=== PATIENT | female | born 1995 | race Asian ===

== ENCOUNTER 2019-03-21 05:15 | Observation (INO) | payer OTHER, SELFPAY ==
[2019-03-21] VITALS (12 sets, daily range): BP systolic 125–179; BP diastolic 35–104; PULSE 65–89; RESP 14–16; TEMP 36.2–37.1; O2SAT 98–100; BMI 26.9; BMI 33.7; BMI 33.8
--- NOTE | 2019-03-21 05:19 | ED.RN ---
CALLED FOR EKG PER RN REQUEST, NO OLD EKGS IN MUSE
--- NOTE | 2019-03-21 05:31 | RAD_ITS ---
STUDY: X-RAY CHEST REASON FOR EXAM: Female, 23 years old. Chest discomfort TECHNIQUE: PA and lateral chest COMPARISON: None. FINDINGS: The lungs are clear and expanded. There is no demonstrated pleural abnormality. Normal size heart. Normal mediastinum and bebeto. Normal visualized pulmonary arteries. Normal visualized aortic arch and descending thoracic aorta. Normal visualized thoracic spine. Normal visualized ribs, clavicles, and shoulders. There is no demonstrated abnormality of the visualized soft tissue structures of the upper abdomen. RAD/Chest PA and Lateral IMPRESSION: Normal x-ray examination of the chest. Electronically Signed: Bernabe Macedo, at 6:29 EDT Tel , Service support ,
--- NOTE | 2019-03-21 05:31 | EKG12_ITS ---
Test Reason : CP Blood Pressure : / mmHG Vent. Rate : 097 BPM Atrial Rate : 097 BPM P-R Int : 168 ms QRS Dur : 094 ms QT Int : 370 ms P-R-T Axes : 064 094 051 degrees QTc Int : 469 ms Normal sinus rhythm T wave abnormality, consider anterior ischemia Prolonged QT Abnormal ECG Confirmed by LAVELLE MCELROY ([id number]), editor farm journal SARAY LOZANO ([id number]) on 03/28/2019 8:17:08 AM Referred By: CHAU Confirmed By:LAVELLE MCELROY
--- NOTE | 2019-03-21 05:31 | ED.DCSUM_ITS ---
History of Present Illness Chief Complaint: Chest Pain Narrative: Patient is a 23-year-old female who presents with chest pain. She was recently diagnosed with hypertension and started on amlodipine. She initially went to the wellness center at the [facility] due to left arm pain and elevated blood pressure. She took her medication and her blood pressure improved. She went back to her dorm and when she rechecked her blood pressure was very high again so she went back to the wellness center. She then developed chest discomfort. She describes this as a central heaviness. It is mild at about 3 out of 10. She complains of mild nausea. No shortness of breath lightheadedness or dizziness. Both of her parents have hypertension but there is not a family history of coronary disease. She denies history of illicit drug use. Past Medical History - Allergies and Home Meds Allergies/Adverse Reactions: Allergies No Known Allergies Allergy (Verified 03/21/19 05:30) Past Medical History: - - Hypertension Smoking Status: Never smoker Review of Systems All systems negative except as indicated General: Denies: Fever Cardiovascular: Reports: Chest pain Respiratory: Denies: Dyspnea Gastrointestinal: Reports: Nausea Physical Exam Vital Signs/Narrative: Vital Signs Temp Pulse Resp BP Pulse Ox 03/21/19 05:17 97.2 F L 89 15 179/104 H 100 General: Well nourished, Well developed Head: Normocephalic Eyes: EOMI ENT: Moist mucous membranes Neck: Supple Cardiovascular: Regular rate, Regular rhythm, - - Easily palpable symmetric radial pulses Respiratory: No distress, CTA bilaterally Abdomen: Soft, Nontender Skin: Normal color Neurological: Alert Psychological: Normal affect Diagnostic/Tx/Re-eval Impressions Chest X-Ray 03/21/19 05:31 IMPRESSION: Normal x-ray examination of the chest. Electronically Signed: Bernabe Remington, at 6:29 EDT Tel , Service support , 03/21/19 05:31 Chest PA and Lateral [RAD] Stat Laboratory Results 03/21/19 03/21/19 03/21/19 05:35 05:35 05:50 WBC 11.1 H RBC 4.47 Hgb 13.1 Hct 40.6 MCV 90.8 MCH 29.3 MCHC 32.3 RDW Std Deviation 42.1 RDW Coeff of Mariana 12.7 Plt Count 247 MPV 10.6 Immature Gran % (Auto) 0.300 Neut % (Auto) 61.9 Lymph % (Auto) 29.6 [place] % (Auto) 6.3 Eos % (Auto) 1.6 Baso % (Auto) 0.3 Absolute Neuts (auto) 6.9 Absolute Lymphs (auto) 3.30 Nucleated RBC % 0 Sodium 142 Potassium 3.8 Chloride 110 H Carbon Dioxide 25.0 Anion Gap 7 BUN 7 Creatinine 0.57 Estim Creat Clear Calc 157.49 Est GFR (MDRD) Af Amer 170 Est GFR (MDRD) Non-Af 141 BUN/Creatinine Ratio 12.2 Glucose 112 H Calcium 8.9 Troponin I < 0.015 Urine Test Urine Opiates Screen NEGATIVE Urine Methadone Screen NEGATIVE Ur Barbiturates Screen NEGATIVE Ur Phencyclidine Scrn NEGATIVE Ur Amphetamines Screen NEGATIVE U Methamphetamin-MDMA NEGATIVE U Benzodiazepines Scrn NEGATIVE Urine Cocaine Screen NEGATIVE U Cannabinoids Screen NEGATIVE Ur Drug Screen Comment 03/21/19 05:50 WBC RBC Hgb Hct MCV MCH MCHC RDW Std Deviation RDW Coeff of Mariana Plt Count MPV Immature Gran % (Auto) Neut % (Auto) Lymph % (Auto) [place] % (Auto) Eos % (Auto) Baso % (Auto) Absolute Neuts (auto) Absolute Lymphs (auto) Nucleated RBC % Sodium Potassium Chloride Carbon Dioxide Anion Gap BUN Creatinine Estim Creat Clear Calc Est GFR (MDRD) Af Amer Est GFR (MDRD) Non-Af BUN/Creatinine Ratio Glucose Calcium Troponin I Urine Test Negative Urine Opiates Screen Urine Methadone Screen Ur Barbiturates Screen Ur Phencyclidine Scrn Ur Amphetamines Screen U Methamphetamin-MDMA U Benzodiazepines Scrn Urine Cocaine Screen U Cannabinoids Screen Ur Drug Screen Comment - Medical Decision Making EKG shows sinus rhythm at a rate of 97 T wave inversions in V3 and V4. Laboratory studies are unremarkable with negative troponin negative negative drug screen. Chest x-ray unremarkable. Patient's diagnosis of hypertension is new she is only been on amlodipine for about 1 week. Given her chest pain with EKG abnormalities I do feel she needs further evaluation. I spoke to the hospitalist who agrees to admit. ED Disposition - Plan for ED Patient: Disposition: Acute Care Hospital [facility] Diagnosis: Hypertensive urgency, Chest pain
[2019-03-21 05:55] LABS: Absolute Neutrophil Count 6.9 X10^3/uL (2.0-7.7); Basophil# 0.03 X10^3/uL; Basophil% 0.3 % (0-1); Eosinophil# 0.18 X10^3/uL; Eosinophils% 1.6 % (0-5); Hematocrit 40.6 % (37-47); Hemoglobin 13.1 g/dL (12.0-15.0); Lymphocyte % 29.6 % (19-41); Mean Corp Hgb Conc 32.3 g/dL (32-36); Mean Corpuscular Hgb 29.3 pg (27.0-32.0); Mean Corpuscular Volume 90.8 fL (81-99); Mean Platelet Vol. 10.6 fl (6.2-12.0); Monocyte% 6.3 % (0-10); NRBC Flagged by Analyzer 0 % (0-5); Neutrophil # 6.89 X10^3/uL (2.7-7.7); Neutrophil % 61.9 % (47-70); Platelet Count 247 K/mm3 (150-450); RBC Distribution Width CV 12.7 % (11.6-14.6); RBC Distribution Width SD 42.1 fl (35.1-43.9); Red Blood Count 4.47 M/mm3 (4.2-5.4); White Blood Count 11.1 K/mm3 (4.4-11.0)
[2019-03-21 06:03] LABS: Internal QC Validated? YES +Cl - CLEAR BKGD; Pregnancy, Urine Negative Negative
[2019-03-21 06:11] LABS: Anion Gap 7 (5-15); BUN 7 mg/dL (7-18); BUN/Creat Ratio 12.2 RATIO (10-20); Calcium,Total 8.9 mg/dL (8.5-10.1); Chloride 110 mmol/L (98-107); Creatinine, Serum 0.57 mg/dL (0.55-1.02); EST Glomerular Filtration Rate 141 mL/min (>60); Est Glom Filt Rate - Afr Amer 170 mL/min (>60); Estimated Creatinine Clearance 157.49 ml/min; Glucose 112 mg/dL (74-106); Potassium 3.8 mmol/L (3.5-5.1); Sodium Level 142 mmol/L (136-145)
[2019-03-21 06:37] LABS: Amphetamine Urine VISTA NEGATIVE (<1000 ng/mL); Barbiturate Urine VISTA NEGATIVE (< 200 ng/mL); Benzodiazepine Urine VISTA NEGATIVE (< 200 ng/mL); Cocaine Urine VISTA NEGATIVE (< 300 ng/mL); Ecstacy Urine VISTA NEGATIVE (< 500 ng/mL); Methadone Urine VISTA NEGATIVE (< 300 ng/mL); PCP Urine VISTA NEGATIVE (< 25 ng/mL); THC Urine VISTA NEGATIVE (< 50 ng/mL); Vista UDS pH Range 6
--- NOTE | 2019-03-21 07:03 | NURSING ---
DR SWEENEY FOR DR LARSON
--- NOTE | 2019-03-21 07:06 | NURSING ---
PCU CP, HYPERTENSIVE URGENCY SEMENTI
--- NOTE | 2019-03-21 07:11 | NURSING ---
DR SWEENEY IN ROOM
--- NOTE | 2019-03-21 07:48 | HP.PCM_ITS ---
Problem List (1) HTN (hypertension) Status: Chronic (2) Abnormal EKG Status: Acute (3) Chest pain Status: Acute Qualifiers: Chest pain type: unspecified Qualified Code(s): R07.9 - Chest pain, unspecified (4) Hypertensive urgency Status: Acute History of Present Illness Date of Admission: 03/21/19 Chief Complaint: uncontrolled BP with NARANJO and chest pain The patient is a 23 year old F with a past medical history of recently diagnosed hypertension at the scene on amlodipine 5 mg daily) Who is a senior at [employer] who was seen at the [facility] at the [facility] on 2 occasions on 03/20/19. She was recently started on Amlodipine by her PCP in [place] for increased BP. There is a FH of HTN in both her parents. She returned to college 1 week ago. She has her own BP monitor and has been taking her BP at different times during the day. It tends to run high. Yesterday she had a NARANJO and her BP was high so she took the Amlodipine and then went to the Wellness Center. The initial BP was high but it came down after the Amlodipine kicked in and she went back home. She continued to take her BP and it was high and then she developed chest tightness and aching in her left arm. No SOB, diaphoresis, nausea, palpitations. It was not related to exertion. She once again went to the Wellness Center and then elected to keep her there for a few hours.....the chest tightness persisted and she was sent to the ED. She admits to taking some cold medication once or twice in the past week. She denies any illicit drug use or weight loss drugs. At presentation to the emergency department the temperature was 97.2 with a pulse rate of 89, blood pressure of 179/104, respiratory rate of 15 and she was 100% saturated on room air. CBC was remarkable for a mildly increased white blood cell count at 11.1 with a normal differential. BMP was unremarkable. Random glucose was mildly increased at 112. She denies any family history of diabetes mellitus. Troponin was less than 0.015. Urine drug screen was negative. test was negative. Ch est x-ray was normal. EKG showed an incomplete right bundle branch block with nonspecific T wave changes in the anterior precordial leads. There was no ST segment elevation. She is quite anxious. she is worried about a bruise on the RUE that has been present for a week and likely happened when she was moving in. She was going to go to the Wellness center to have this checked out. She is also worried about a scratchy throat and was going to go to the [facility] Center to have that checked out. She has seasonal allergies and always has rhinitis at this time of the year. She has never been treated for anxiety or depression but, admits to being stressed about going into her senior year. She is sleeping well at night but, does not feel rested when she gets up in morning. She snores and she has a large tongue. 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 Denies: Ear Pain, Sinus Congestion, Sinus Drainage Cardiovascular: Reports: Chest Pain, Chest Pressure. Denies: Edema, Light Headedness, Orthopnea, Palpitations, Paroxysmal Noc. Dyspnea, Syncope Respiratory: Denies: Cough, Hemoptysis, Pleuritic Pain, Shortness of Breath, Shortness of breath at rest, Sputum production Gastrointestinal: Denies: Abdominal Pain, Constipation, Diarrhea, Nausea, Vomiting Genitourinary: Denies: Dysuria Gynecological: Reports: - - She is currently on her period. Musculoskeletal: Denies: Joint Pain, Joint Tenderness Skin: Reports: - - she has a small bruise on the RUE over the biceps which is resolving. Denies: Jaundice, Rash, Wounds Neurological: Denies: Slurred speech, Difficulty swallowing, Focal weakness, Numbness, Tingling, Seizures Psychiatric: Reports: Anxiety - suspected. Denies: Depression, Homicidal Ideations, Suicidal Ideations Hematologic/ Lymphatic: Denies: Easy Bruising, Easy Bleeding, Hx of blood clot VTE Information - Inpt Only VTE Present on Admission: No VTE Mechan Device Prophylaxis: None VTE Pharm Prophylaxis ordered?: No Reason prophylaxis not ordered:: Treatment Not Indicated Patient Problems: Active and Suspected Problems Hypertensive urgency (Acute) Chest pain (Acute) Abnormal EKG (Acute) - Physical Exam General: Alert, Oriented x3, Cooperative, Well developed, Well nourished HEENT: Atraumatic, PERRLA, EOMI, Normocephalic, - - No tonsillar enlargement, no pharyngeal injection, no tonsillar exudates, EAC are patent bilaterally and the TMs are normal. Oral: Moist Mucosa, No Gingival or Mucosal Lesions/ Ulcerations, - - She has a large tongue Neck: Supple, No JVD, Negative Carotid Bruits, No Nodes, Trachea Midline, Thyroid Normal Size and Texture Lungs: Clear to auscultation, Normal air movement, No rhonchi, No wheeze, No rales Cardiovascular: Regular rate, Regular Rhythm, Normal S1, Normal S2, No murmurs, No Ectopic Activity, No rub noted, No Gallop Abdomen: Bowel Sounds Present, Soft, Non Tender Extremities: No clubbing, No cyanosis, No edema, Capillary Refill Less than 3 Seconds, No Calf Tenderness, Peripheral Pulses Normal, - - she bites her fingenails Skin: No rashes, No breakdown, - - She has a small bruise which is resolving on the right upper extremity over the biceps muscle Musculoskeletal: No Tenderness to Palpation of Joints or Extremities, No Muscle Wasting Neurological: Cranial nerves II-XII grossly intact, Neuro grossly intact Psych/Mental Status: Normal Affect, Appropriate, Anxious Vital Signs Temp Pulse Resp BP Pulse Ox 97.2 F L 73 16 129/87 H 98 03/21/19 05:17 03/21/19 06:16 03/21/19 06:16 03/21/19 06:16 03/21/19 06:16 Oxygen Flow Rate (L/min) 2 Oxygen Delivery Method Room Air Weight: 177 lb 4.026 oz Body Mass Index (BMI) 26.9 Laboratory Tests Past 24 Hrs 03/21/19 03/21/19 03/21/19 05:35 05:35 05:50 WBC 11.1 H RBC 4.47 Hgb 13.1 Hct 40.6 MCV 90.8 MCH 29.3 MCHC 32.3 RDW Std Deviation 42.1 RDW Coeff of [place] 12.7 Plt Count 247 MPV 10.6 Immature Gran % (Auto) 0.300 Neut % (Auto) 61.9 Lymph % (Auto) 29.6 [place] % (Auto) 6.3 Eos % (Auto) 1.6 Baso % (Auto) 0.3 Absolute Neuts (auto) 6.9 Absolute Lymphs (auto) 3.30 Nucleated RBC % 0 Sodium 142 Potassium 3.8 Chloride 110 H Carbon Dioxide 25.0 Anion Gap 7 BUN 7 Creatinine 0.57 Estim Creat Clear Calc 157.49 Est GFR (MDRD) Af Amer 170 Est GFR (MDRD) Non-Af 141 BUN/Creatinine Ratio 12.2 Glucose 112 H Calcium 8.9 Troponin I < 0.015 Urine Test Urine Opiates Screen NEGATIVE Urine Methadone Screen NEGATIVE Ur Barbiturates Screen NEGATIVE Ur Phencyclidine Scrn NEGATIVE Ur Amphetamines Screen NEGATIVE U Methamphetamin-MDMA NEGATIVE U Benzodiazepines Scrn NEGATIVE Urine Cocaine Screen NEGATIVE U Cannabinoids Screen NEGATIVE Ur Drug Screen Comment 03/21/19 05:50 WBC RBC Hgb Hct MCV MCH MCHC RDW Std Deviation RDW Coeff of [place] Plt Count MPV Immature Gran % (Auto) Neut % (Auto) Lymph % (Auto) [place] % (Auto) Eos % (Auto) Baso % (Auto) Absolute Neuts (auto) Absolute Lymphs (auto) Nucleated RBC % Sodium Potassium Chloride Carbon Dioxide Anion Gap BUN Creatinine Estim Creat Clear Calc Est GFR (MDRD) Af Amer Est GFR (MDRD) Non-Af BUN/Creatinine Ratio Glucose Calcium Troponin I Urine Test Negative Urine Opiates Screen Urine Methadone Screen Ur Barbiturates Screen Ur Phencyclidine Scrn Ur Amphetamines Screen U Methamphetamin-MDMA U Benzodiazepines Scrn Urine Cocaine Screen U Cannabinoids Screen Ur Drug Screen Comment Assessment/Plan All Active Problems Hypertensive urgency (Acute) Chest pain (Acute) Abnormal EKG (Acute) Impressions 1. Hypertensive urgency - recently diagnosed with HTN....she is awfully young to have HTN. Will need to look for secondary causes. Renal A duplex , cortisol, TSH and 24 H urine for metanephrines ordered. I suspect the increased BP is connected to increased stress/anxiety. She has many somatic complaints and perseverates on the BP measuring it frequently and getting more anxious when it is high. 2. obesity - weight loss advised 3. chronic fatigue, snoring, does not feel rested in the morning - possible sleep disordered breathing which can also lead to HTN - overnight trending pulse ox ordered. 4. anxiety - may benefit from some counselling at school to learn to control her anxiety. Will have behavioral health talk to her while she is in the hospital 5. chest pain - atypical. ABN EKG with T wave inversions in the anterior precordial leads and an incomplete RBBB. ECHO, serial CE's and a treadmill nuclear stress in the AM Code Visit OBSV E&M: [id number] Initial observation care L3
--- NOTE | 2019-03-21 07:52 | ECHOD_ITS ---
Reason For Study: ABN EKG Procedure This was a 2D Doppler, Color Flow transthoracic echocardiogram. The study was technically difficult. Best parasternal window is in supine position. Exam performed portable in patient room. Left Ventricle Normal size and thickness. The estimated ejection fraction is 65 %. Normal diastology for age. No regional wall motion abnormalities noted. Right Ventricle Normal size and thickness. Normal systolic function. Atria Normal left atrium. Normal right atrium. Normal atrial septum. Mitral Valve The mitral valve is structurally normal. No prolapse or stenosis seen. Tricuspid Valve Normal tricuspid valve. Unable to estimate RV systolic pressure due to insufficient tricuspid regurgitant envelope. Trivial tricuspid valve insufficiency. Aortic Valve Normal aortic valve. Trisinus/trileaflet aortic valve. Pulmonic Valve Normal pulmonic valve. Trivial pulmonic valve insufficiency. Great Vessels Normal aortic root. Normal arch. Normal inferior vena cava. Inferior vena cava collapse with sniff. Pericardium/Pleural No pericardial effusion. MMode/2D Measurements & Calculations LVIDd: 4.5 cm IVSd: 0.96 cm LVOT diam: 2.0 cm LVIDs: 3.1 cm LVPWd: 0.98 cm LVOT area: 3.0 cm2 RVDd: 3.0 cm FS: 30.7 % Ao root diam: 3.0 cm LAV(MOD-bp): 57.3 ml LA A4 area: 20.0 cm2 LAV(MOD-bp) Indexed: 30.9 ml/m2 LAV(MOD-sp2): 52.6 ml LAV(MOD-sp4): 61.7 ml LA dimension(2D): 3.1 cm RA A4 area: 16.4 cm2 Time Measurements MV dec time: 0.18 sec Doppler Measurements & Calculations MV E max amari: 114.4 cm/sec Lat Peak E' Amari: 13.1 cm/sec Med Peak E' Amari: 14.1 cm/sec MV A max amari: 68.1 cm/sec E/E' lat: 8.7 E/E' med: 8.1 MV E/A: 1.7 Ao V2 max: 141.7 cm/sec LV V1 max: 111.4 cm/sec PA V2 max: 83.0 cm/sec Ao max P.0 mmHg LV V1 max P.0 mmHg PATRICK(V,D): 2.4 cm2 Interpretation Summary The estimated ejection fraction is 65 %. Normal diastology for age. Unable to estimate RV systolic pressure due to insufficient tricuspid regurgitant envelope. Trivial tricuspid valve insufficiency. The study was technically limited. There is no comparison study available. Ordering Physician: Jocy Sanabria Referring Physician: MARIANNA PCP Performed By: Mayuri Mckeon RDCS, RVT
--- NOTE | 2019-03-21 07:52 | RDU_ITS ---
Reason For Study: Uncontrolled HTN Right Renal Artery Left Renal Artery Right renal artery ostium 96.5/47.2 Left renal artery ostium 91.3/33.5 RSV/EDV. PSV/EDV. Right renal artery proximal Left renal artery proximal PSV/EDV 92.6/37.3 PSV/EDV. 72.9/29.5 . Right renal artery mid 110.6/56.2 Left renal artery mid 83/34.3 PSV/EDV. PSV/EDV . Right renal artery distal Left renal artery distal 78.1/29.8 100.7/48.2 PSV/EDV. PSV/EDV. Right RAR 1.12. Left RAR 0.93. Right Renal Parenchyma Left Renal Parenchyma Upper Pole Medula 34.6/14.5 Left upper pole medulla 33.7/14.7 PSV/EDV. PSV/EDV . Right upper pole medulla EDR 0.42 . Left upper pole medulla EDR 0.46 . Right upper pole medulla R.I. Left upper pole medulla R.I. 0.54 . 0.58 . UP Cortex 33.1/14.7 PSV/EDV. Upper Hai Cortx 25.8/14.2 PSV/EDV. Left upper pole cortex EDR 0.44 . Right upper pole cortex EDR 0.55 . Left upper pole cortex R.I. 0.56 . Right upper pole cortex R.I. 0.45 . Left lower Pole medulla 37.4/17.7 Right lower Pole medulla 35.8/18.2 PSV/EDV . PSV/EDV . Left lower pole medulla EDR 0.47 . Right lower pole medulla EDR 0.51 . Left lower pole medulla R.I. 0.53 . Right lower pole medulla R.I. Lower Pole Cortx 30.6/15.9 PSV/EDV. 0.49 . Left lower pole cortex EDR 0.52 . Lower Pole Cortex 24.6/8.1 PSV/EDV. Left lower pole cortex R.I. 0.48 . Right lower pole cortex EDR 0.33 . Left Renal Hilar Right lower pole cortex R.I. 0.67 . LT Hilar avg 62.5/24.9 PSV/EDV . Right Renal Hilar Left hilar acceleration time 40 Right Hilar avg 48.4/20.9 PSV/EDV. m/sec. Right hilar acceleration time 40 Left Renal Dimensions m/sec. Left kidney size 10.71 cm . Right Renal Dimensions Left cortical dimension 1.36 cm . Right kidney size 11.14 cm . Right cortical dimension 1.41 cm . Aorta Proximal abdominal aorta 1.27 x 1.31 cm . Proximal abdominal aorta peak systolic velocity is 83.8 cm/sec . Distal abdominal aorta 1.34 x 1.28 cm . Distal abdominal aorta peak systolic velocity is 98.4 cm/sec . Interpretation Summary Dimensions of the intra-abdominal aorta appear normal, without evidence of aneurysmal dilatation. Renal artery velocities are bilaterally normal. Acceleration times are normal bilaterally. Renal- aortic ratios are also bilaterally normal. There is no evidence of hemodynamically significant renal artery stenosis on either side. Renovascular resistance appears to be bilaterally normal . Cortical dimensions are bilaterally normal. Kidneys appear normal in size bilaterally. Ordering Physician: Jocy Sanabria Performed By: Doris Aldrich RVT
--- NOTE | 2019-03-21 07:52 | EKG12_ITS ---
Test Reason : CP REPEAT Blood Pressure : / mmHG Vent. Rate : 069 BPM Atrial Rate : 069 BPM P-R Int : 180 ms QRS Dur : 094 ms QT Int : 412 ms P-R-T Axes : 022 086 043 degrees QTc Int : 441 ms Normal sinus rhythm [id number] Confirmed by LUIS ALONSO, HERI ([id number]), dictionary editor KATHY LAWRENCE ([id number]) on 03/27/2019 11:56:57 AM Referred By: PATEL Confirmed By:HERI SMITH MD
[2019-03-21 08:21] LABS: Cholesterol 142 mg/dL (200); High Density Lipoprotein 51 mg/dL; Magnesium 2.1 mg/dL (1.6-2.6); Triglycerides 61 mg/dL; Very Low Density Lipoprotein 12 mg/dL (5-40)
[2019-03-21 08:25] LABS: Hemoglobin A1c 5.2 % (4.2-6.3)
[2019-03-21] MEDS: Aspirin E.C. 81 MG Tablet PO (09:55)
[2019-03-21] MEDS: Atenolol 25 MG Tablet PO (09:55)
--- NOTE | 2019-03-21 15:47 | CASEMGMT ---
Physician asked ROMULO about counseling resources at [facility]. SW researched and found information to give to patient. Physician also asked SW to see if someone from Behavioral Health can come and talk with patient. ROMULO called Ward at [facility] and he will see patient tomorrow. Lexus MARTINEZ MSW
[2019-03-22] VITALS (7 sets, daily range): BP systolic 127–133; BP diastolic 75–96; PULSE 60–73; RESP 16; TEMP 36.5–36.8; O2SAT 99–100
--- NOTE | 2019-03-22 05:55 | EKG12_ITS ---
Test Reason : AM EKG Blood Pressure : / mmHG Vent. Rate : 049 BPM Atrial Rate : 049 BPM P-R Int : 186 ms QRS Dur : 082 ms QT Int : 446 ms P-R-T Axes : 067 076 053 degrees QTc Int : 402 ms Sinus bradycardia Otherwise normal ECG Confirmed by LUIS ALONSO, HERI ([id number]), editor farm journal KATHY LAWRENCE ([id number]) on 03/27/2019 11:51:05 AM Referred By: DR SWEENEY Confirmed By:HERI SMITH MD
[2019-03-22 06:11] LABS: AST(SGOT) 11 U/L (15-37); Alanine Aminotransfer ALT/SGPT 19 U/L (13-56); Albumin, Serum 3.4 g/dL (3.2-5.0); Alkaline Phosphatase 50 U/L (45-117); Bilirubin, Direct < 0.05 mg/dL (0.00-0.30); Globulin 4.2 g/dL (2.2-4.2); Protein, Total 7.6 g/dL (6.4-8.2); Thyroid Stim Hormone (TSH) 1.41 uIU/mL (0.358-3.74)
[2019-03-22] MEDS: Aspirin E.C. 81 MG Tablet PO (06:24)
[2019-03-22] MEDS: Atenolol 25 MG Tablet PO (11:21)
--- NOTE | 2019-03-22 11:57 | BH.NOTE ---
BH: Inpatient Note - Notes Behavioral Health Inpatient Note: 03/22/19 11:58 Referral to [facility] to talk with patient about resources in the area for anxiety. Met with pt and her mother in her room. Pt agreeable to mother staying. Denies any hx of psychiatric treatment. Currently pt is a senior at [employer] and plans to pursue her graduate degree at [employer] in [place] where she is from. While living away from home, demanding college courses, and preparing for grad school appear to be stressful and anxiety producing pt denies. Denies any hx of panic attacks, ruminations, or depressive symptoms. Denies any social anxiety, isolation, or current life stressors aside from her BP. Mother is present and appears supportive as she flew here from [place]. We talked at length regarding the impact of stress and anxiety on BP and the benefits of learning effective coping strategies. Pt agreed. Encouraged her to monitor her mood and if she notices that her anxiety and stress worsen to call the college's counseling services.
--- NOTE | 2019-03-22 12:14 | PCM.DC ---
- Discharge Diagnoses Current Active Problems: Current Active and Chronic Problems Hypertensive urgency (Acute) Chest pain (Acute) HTN (hypertension) (Chronic) You will use the following diet at home:: Other - Low sodium. Discharge Activity: Return to Normal Activity Call your doctor if you observe: Shortness of breath, Dizziness, Fainting spells, Chest pain Allergies/Adverse Reactions: Allergies No Known Allergies Allergy (Verified 03/21/19 05:30) Medications to take at Discharge Cholecalciferol (Vitamin D3) [Vitamin D3] 10,000 unit PO QWEEK 03/21/19 Atenolol [Tenormin (beta callie)] 25 mg PO DAILY #120 tab 03/22/19 The following prescriptions were given: Atenolol [Tenormin (beta callie)] 25 mg PO DAILY #120 tab Transmission Status: Received by [facility] Primary Care Physician: Care Physician,No Primary [Primary Care Provider] - Please follow up with your Primary Care Physician in: 1 Week Test Results: Test results from this visit will be discussed in further detail at your follow-up appointment, if applicable. Please Follow Up With: [facility] When: Set up appt at discharge Proposed Discharge Date: 03/22/19
--- NOTE | 2019-03-22 12:51 | STRESSREP_ITS ---
Stress Test Report Date: 03/22/2019 Procedure: Pharmacologic stress nuclear imaging study Indications: Chest pain Consent: Per the patient Procedure: The patient underwent pharmacologic (Regadenoson) evaluation with a peak heart rate of 107 beats per minute (53 %predicted maximal heart rate) and a peak blood pressure of 153/104 mmHg. The baseline ECG demonstrated normal sinus rhythm, nonspecific ST-T changes. EKG during lexiscan infusion revealed no significant change from baseline. EKG post infusion revealed no significant change from baseline [There were no cardiac dysrhythmias pretest, during pharmacologic infusion, or recovery]. [There was no complaint of chest discomfort during pharmacologic infusion or recovery]. The examination was discontinued secondary to completion of protocol. Impression: 1. Lexiscan stress test test is negative for Lexiscan infusion induced EKG changes of ischemia. 2. Lexiscan stress test test is negative for Lexiscan infusion induced chest pain. 3. Results of the nuclear portion of the test is as below Myocardial perfusion imaging study: Technique: The patient was injected with 11.7 millicuries of technetium 99m Cardiolite and subsequently rest SPECT Cardiolite nuclear imaging was obtained in the horizontal long, vertical long, and short axis views. The patient underwent pharmacologic (Regadenoson) evaluation. Please see above for details. The patient was injected with 33.4 millicuries of technetium 99m Cardiolite and subsequently stress SPECT Cardiolite nuclear imaging was obtained in the horizontal long, vertical long, and short axis views. A gated Cardiolite study at peak stress was obtained. Interpretation: Rest and stress SPECT Cardiolite nuclear imaging status post realignment, normalization, and attenuation correction demonstrate overall normal myocardial radioisotope uptake. There is extracardiac uptake adjacent to the inferior wall in both the rest and stress images. Gated images reveal what appears to be hypokinesis in the mid portion of the inferior wall which is likely artifact secondary to the extracardiac uptake. The reported LVEF is greater than 70 %. Impression: 1. There is no evidence of significant ischemia or infarction. 2. Estimated ejection fraction is greater than 70%. This note was generated with [employer] software. It may contain incorrect words, spelling, and punctuation that were not noted in checking the note before signing.
--- NOTE | 2019-03-22 13:14 | DS.PCM_ITS ---
Discharge Date and Diagnosis Date of Admission: 03/21/19 Date of Discharge: 03/22/19 - Primary Discharge Diagnosis Active and Suspected Problems 1. Hypertensive urgency with recent diagnosis hypertension 2. Atypical chest pain, ACS ruled out 3. Anxiety, poorly controlled 4. Possible sleep disordered breathing 5. Obesity - Secondary Discharge Diagnosis Chronic Problems HTN (hypertension) (Chronic) Hospital Course and Treatment Imaging Results: Diagnostic Data Chest X-Ray 03/21/19 05:31 IMPRESSION: Normal x-ray examination of the chest. Electronically Signed: Bernabe Macedo, at 6:29 EDT Tel , Service support , Operations: None Procedures: 2-D Echocardiogram, Stress test Summary of Care Provided: The patient is a 23 year old F admitted 03/21/2019 due to uncontrolled blood pressure with headache and chest pain. 1. Hypertensive urgency with recent diagnosis hypertension-suspect anxiety induced. Echocardiogram with EF 65%, no other abnormalities. Renal ultrasound completed, report pending. Cortisol, TSH normal. Home amlodipine switch to atenolol 25 mg daily. Blood pressure well controlled at this time. Patient has blood pressure monitor in her room at school, recommend checking blood pressure twice daily and document findings. Instructed if her blood pressure is greater than 160s systolically, follow-up with wellness center to have it rechecked. 2. Atypical chest pain, ACS ruled out-troponin negative. EKG abnormal with T wave inversions V1 to V3. Echocardiogram demonstrated an EF of 65%. Patient underwent nuclear stress test which was negative for ischemia. 3. Anxiety, poorly controlled-discussed counseling at [facility] in [facility], patient agreeable. She does not wish to start SSRI or other medication treatment at this time and will reassess with primary care physician if anxiety is still poorly controlled when she returns to [place] in May for school break. Behavioral health consulted during admission and again discussed counseling services at [facility]. 4. Possible sleep disordered breathing-overnight trending pulse ox demonstrated multiple episodes of desaturation. Recommend outpatient sleep study. Patient would like to complete this with her primary care provider when she is home for school break. 5. Obesity-encouraged diet and lifestyle modifications. Patient seen and examined prior to discharge. Physical assessment as noted be low. Patient is stable for discharge with follow up recommendations as noted above. This patient was seen by VANESSA Kumar under the supervision of Dr. Sanabria. - Physical Exam General: Alert, Oriented x3, Cooperative HEENT: Atraumatic, PERRLA, EOMI, Normocephalic Neck: Supple, No JVD, Negative Carotid Bruits Lungs: Clear to auscultation, Normal air movement Cardiovascular: Regular rate, Regular Rhythm, Normal S1, Normal S2, No murmurs Abdomen: Bowel Sounds Present, Soft, Non Tender, Non-Distended Extremities: No clubbing, No cyanosis, No edema, Capillary Refill Less than 3 Seconds Skin: No rashes, No breakdown Musculoskeletal: No Tenderness to Palpation of Joints or Extremities Neurological: Cranial nerves II-XII grossly intact, Neuro grossly intact Psych/Mental Status: Normal Affect, Appropriate Vital Signs Temp Pulse Resp BP Pulse Ox 98.3 F 72 16 133/96 H 99 03/22/19 11:18 03/22/19 11:18 03/22/19 11:18 03/22/19 11:18 03/22/19 11:18 Oxygen Flow Rate (L/min) 2 Oxygen Delivery Method Room Air Weight: 172 lb 13.478 oz Body Mass Index (BMI) 33.7 Intake and Output for Last 24 Hours 03/20/19 03/21/19 03/22/19 23:59 23:59 23:59 Intake Total 480 / 480 Output Total 600 / 600 Balance -120 / -120 Laboratory Tests Past 24 Hrs 03/21/19 03/22/19 09:50 05:08 Total Bilirubin 0.20 Direct Bilirubin < 0.05 AST 11 L ALT 19 Alkaline Phosphatase 50 Total Protein 7.6 Albumin 3.4 Globulin 4.2 TSH 1.41 Urine Metanephrine Pending U Metanephrines 24 Hr Pending U Normetanephrine Pending U Normetanephrine 24h Pending Discharge Diet: Low fat/ Low Cholesterol, 2000 mg Sodium Diet Discharge Activity: Return to Normal Activity Call your doctor if you observe: Shortness of breath, Dizziness, Fainting spells, Chest pain Home Medications: Medications to take at Discharge Cholecalciferol (Vitamin D3) [Vitamin D3] 10,000 unit PO QWEEK 03/21/19 Atenolol [Tenormin (beta callie)] 25 mg PO DAILY #120 tab 08/29/19 Following Prescrptions Were Given to Patient: Atenolol [Tenormin (beta callie)] 25 mg PO DAILY #120 tab Transmission Status: Received by [facility] Primary Care Physician: Care Physician,No Primary [Primary Care Provider] - Please follow up with your Primary Care Physician in: 1 Week Please Follow Up With: [facility] When: Set up appt at discharge Disposition: Home Minutes spent on discharge:: 35 Patient Condition:: Stable Medical Necessity - Tobacco Use Smoking Status: Never smoker Tobacco Use: Non-smoker Meaningful Use Info Meaningful Use Diagnoses (Choose all that apply): None applicable
[2019-03-27 15:10] LABS: Metanephrine, Ur 75 ug/L (Undefined); Metanephrines, 24Ur 113 ug/24 hr (45-290); Normetanephrines, 24Ur 303 ug/24 hr (82-500); Normetanephrines, Ur 202 ug/L (Undefined)
== END 2019-03-22 12:15 | disposition home or self-care (01) ==
LOC: ED 07:04 → PCU 07:22
PROVIDERS: Admitting Provider Internal Medicine; Emergency Provider Emergency Medicine; Visit Provider Internal Medicine
DX: I16.0 Hypertensive urgency (principal); R07.89 Other chest pain; I10 Essential (primary) hypertension; M79.602 Pain in left arm; R94.31 Abnormal electrocardiogram [ECG] [EKG]; R00.1 Bradycardia, unspecified; R53.82 Chronic fatigue, unspecified; F41.9 Anxiety disorder, unspecified; E66.9 Obesity, unspecified; Z68.33 Body mass index [BMI] 33.0-33.9, adult; Z71.3 Dietary counseling and surveillance
CPT/HCPCS: 36415; 71046; 78452; 80048; 80061; 80076; 80307; 81025; 82533; 83036; 83735; 83835; 84443; 84484; 85025; 93005; 93017; 93306; 93975; 94762; 96374; 99218; 99285; A9500; Q9957; A4216; G0378; J2785

== ENCOUNTER 2019-03-24 23:30 | Emergency (ER) | payer OTHER, SELFPAY ==
[2019-03-21 08:35] VITALS: BMI 33.7
[2019-03-24 23:31] VITALS: BP 166/122; PULSE 65; RESP 16; TEMP 36.8; O2SAT 98; BMI 33.7
--- NOTE | 2019-03-24 23:44 | RAD_ITS ---
STUDY: X-RAY CHEST REASON FOR EXAM: Female, 23 years old. Chest pain. TECHNIQUE: AP portable chest. COMPARISON: March 21, 2019. FINDINGS: The lungs are clear and expanded. There is no demonstrated pleural abnormality. Normal size heart. Normal mediastinum and bebeto. Normal visualized pulmonary arteries. Normal visualized aortic arch and descending thoracic aorta. Normal visualized thoracic spine. Normal visualized ribs, clavicles, and shoulders. There is no demonstrated abnormality of the visualized soft tissue structures of the upper abdomen. RAD/Chest 1 View (Portable) IMPRESSION: Normal x-ray examination of the chest. Electronically Signed: Scooby Rinaldi MD at 0:49 EDT , Service support ,
--- NOTE | 2019-03-24 23:44 | EKG12_ITS ---
Test Reason : CP Blood Pressure : / mmHG Vent. Rate : 064 BPM Atrial Rate : 064 BPM P-R Int : 174 ms QRS Dur : 090 ms QT Int : 424 ms P-R-T Axes : 025 083 040 degrees QTc Int : 437 ms Normal sinus rhythm Normal ECG Confirmed by LUIS ALONSO, HERI ([id number]), non linear editor SARAY LOZANO ([id number]) on 03/28/2019 8:16:07 AM Referred By: CALLUM Confirmed By:HERI SMITH MD
[2019-03-24 23:46] VITALS: BP 154/94; PULSE 65; RESP 17; O2SAT 99
--- NOTE | 2019-03-24 23:51 | ED.DCSUM_ITS ---
History of Present Illness Chief Complaint: Chest Pain Informant: Patient Onset: Today Context: Gradual Onset Timing: Intermittent Current Severity: Moderate Maximum Severity: Moderate Narrative: Patient presents to the emergency department with chest pain. Of note, patient was admitted 3 days ago. At that time, she underwent stress testing which was unremarkable. She had an echo. It was thought that her pain was likely secondary to anxiety and hypertension. Her antihypertensive medications were switched to atenolol but she is been taking. She states tonight, she felt a mild heaviness across her chest. She states it was not nearly as severe as it was but when I brought her in before. She states she took her blood pressure was 160/110. She denies headache or vision change. She does admit to being under stress lately. There is family history of hypertension, but no family history of vascular disease. Prior similar symptoms: Yes Recent Illness/Hospitalization: Yes Past Medical History - Allergies and Home Meds Allergies/Adverse Reactions: Allergies No Known Allergies Allergy (Verified 03/24/19 23:33) Primary Care Physician: Care Physician,No Primary [Primary Care Provider] - Prior records reviewed: Yes Past Medical History: - - HTN Surgical History: no surgical history Smoking Status: Never smoker - Family History Maternal Family History: Reports: Hypertension Paternal Family History: Reports: Hypertension Review of Systems General: Denies: Chills, Fever, Sweats Eyes: Denies: Visual changes - bilaterally, Diplopia ENT: Denies: Rhinorrhea, Sore throat Cardiovascular: Reports: Chest pain. Denies: Palpitations Respiratory: Denies: Dyspnea, Cough, Dyspnea on exertion Gastrointestinal: Denies: Abdominal pain, Nausea, Vomiting, Diarrhea, Melena, Hematochezia Genitourinary: Denies: Dysuria, Hematuria, Frequency Musculoskeletal: Denies: Back pain, Extremity Pain Skin: Denies: Rash, Wounds Neurological: Denies: Headache, Weakness, Numbness Physical Exam Vital Signs/Narrative: Vital Signs Temp Pulse Resp BP Pulse Ox 03/24/19 23:46 65 17 154/94 H 99 03/24/19 23:31 98.2 F 65 16 166/122 H 98 Inital Vital Signs reviewed: Yes General: Well nourished, Well developed, No Acute Distress Head: Normocephalic, Atraumatic Eyes: Perrl, EOMI ENT: Moist mucous membranes, No rhinorrhea Neck: Supple, Nontender Cardiovascular: Regular rate, Regular rhythm, No murmurs Respiratory: No distress, CTA bilaterally, Chest nontender Abdomen: Soft, Nontender, Nondistended, Normal bowel sounds Back: Nontender, Normal Inspection Extremities: Nontender, No edema Skin: Normal color, No rash Neurological: Alert, Oriented x3, Cranial nerves II-XII grossly intact, Normal Strength, Normal Sensation Psychological: Normal affect, Normal Mood Diagnostic/Tx/Re-eval Chest X-Ray - ED: 2 View, Read by ED Physician, Normal, Heart, Lungs, Mediastinum Abnormal Lab Results 03/25/19 03/25/19 00:00 00:00 WBC 9.5 RBC 4.35 Hgb 12.7 Hct 39.1 MCV 89.9 MCH 29.2 MCHC 32.5 RDW Std Deviation 41.4 RDW Coeff of Mariana 12.6 Plt Count 235 MPV 10.5 Immature Gran % (Auto) 0.100 Neut % (Auto) 62.7 Lymph % (Auto) 28.5 Hanson % (Auto) 7.0 Eos % (Auto) 1.5 Baso % (Auto) 0.2 Absolute Neuts (auto) 6.0 Absolute Lymphs (auto) 2.70 Nucleated RBC % 0 Sodium 140 Potassium 3.7 Chloride 109 H Carbon Dioxide 26.0 Anion Gap 5 BUN 14 Creatinine 0.64 Estim Creat Clear Calc 99.88 Est GFR (MDRD) Af Amer 150 Est GFR (MDRD) Non-Af 124 BUN/Creatinine Ratio 21.9 H Glucose 99 Calcium 8.9 Troponin I < 0.015 - Rhythm Strip Rhythm Strip: Sinus Rhythm Rate: 80 Ectopy: None - EKG Initial EKG Interpretation: Sinus Rhythm, No Acute Injury Pattern Prior: Unchanged - Medical Decision Making The patient presents to the emergency department with chest pain. She was initially mildly hypertensive on arrival. Her pain is not nearly as severe as it was last time that she was admitted. She underwent stress testing which was normal. EKG was obtained which showed sinus rhythm without acute ischemic change. It was unchanged from prior. Cardiac enzymes are normal. My suspicion is that a lot of this is anxiety driven. The patient was given a small dose of Ativan and had improvement of her symptoms and total resolution of her pain. Her repeat blood pressure had improved. He is on a very low dose of atenolol. I did certified genetic counselor her that if she is having the symptoms and she is hypertensive to repeat her dose of atenolol. If her symptoms are not improving, I did certified genetic counselor her to come in to the emergency department. She and mother comfortable with this plan of care. She will be discharged home. Impression 1. Atypical chest pain ED Disposition - Plan for ED Patient: Instructions: CHEST PAIN, NonCardiac Referrals: Care Physician,No Primary [Primary Care Provider] -
[2019-03-25] MEDS: LORazepam 2 MG/ML Syringe 0.5 MG IV
[2019-03-25] MEDS: Aspirin 81 MG TAB.CHEW 324 MG PO
[2019-03-25] MEDS: 0.9% Normal Saline 1,000 ML 150 ML IV (00:01)
[2019-03-25 00:18] LABS: Basophil# 0.02 X10^3/uL; Basophil% 0.2 % (0-1); Eosinophil# 0.14 X10^3/uL; Eosinophils% 1.5 % (0-5); Hematocrit 39.1 % (37-47); Hemoglobin 12.7 g/dL (12.0-15.0); Lymphocyte % 28.5 % (19-41); Mean Corp Hgb Conc 32.5 g/dL (32-36); Mean Corpuscular Hgb 29.2 pg (27.0-32.0); Mean Corpuscular Volume 89.9 fL (81-99); Mean Platelet Vol. 10.5 fl (6.2-12.0); Monocyte# 0.66 X10^3/uL; NRBC Flagged by Analyzer 0 % (0-5); Neutrophil # 5.95 X10^3/uL (2.7-7.7); Neutrophil % 62.7 % (47-70); Platelet Count 235 K/mm3 (150-450); RBC Distribution Width CV 12.6 % (11.6-14.6); RBC Distribution Width SD 41.4 fl (35.1-43.9); Red Blood Count 4.35 M/mm3 (4.2-5.4); White Blood Count 9.5 K/mm3 (4.4-11.0)
[2019-03-25 00:31] LABS: Anion Gap 5 (5-15); BUN 14 mg/dL (7-18); BUN/Creat Ratio 21.9 RATIO (10-20); Calcium,Total 8.9 mg/dL (8.5-10.1); Chloride 109 mmol/L (98-107); Creatinine, Serum 0.64 mg/dL (0.55-1.02); EST Glomerular Filtration Rate 124 mL/min (>60); Est Glom Filt Rate - Afr Amer 150 mL/min (>60); Estimated Creatinine Clearance 99.88 ml/min; Glucose 99 mg/dL (74-106); Potassium 3.7 mmol/L (3.5-5.1); Sodium Level 140 mmol/L (136-145)
[2019-03-25 01:17] VITALS: BP 131/75; PULSE 67; RESP 17; O2SAT 99
== END 2019-03-25 01:18 | disposition home or self-care (01) ==
LOC: ED 03-25 00:10
PROVIDERS: Emergency Provider Emergency Medicine
DX: R07.89 Other chest pain (principal); I10 Essential (primary) hypertension; F41.9 Anxiety disorder, unspecified; Z79.899 Other long term (current) drug therapy
CPT/HCPCS: 71045; 80048; 84484; 85025; 93005; 96361; 96374; 99284; J7030; A4216

== ENCOUNTER 2019-03-29 02:34 | Emergency (ER) | payer OTHER, SELFPAY ==
[2019-03-29 02:35] VITALS: BP 138/106; PULSE 60; RESP 16; TEMP 36.7; O2SAT 98; BMI 31.0
--- NOTE | 2019-03-29 02:50 | EKG12_ITS ---
Test Reason : CP Blood Pressure : / mmHG Vent. Rate : 055 BPM Atrial Rate : 055 BPM P-R Int : 168 ms QRS Dur : 092 ms QT Int : 430 ms P-R-T Axes : 013 067 031 degrees QTc Int : 411 ms Sinus bradycardia with sinus arrhythmia Low voltage QRS Borderline ECG Confirmed by LAVELLE MCELROY ([id number]), photography editor KATHY LAWRENCE ([id number]) on 04/02/2019 2:39:54 PM Referred By: CHAU Confirmed By:LAVELLE MCELROY
--- NOTE | 2019-03-29 02:51 | ED.DCSUM_ITS ---
History of Present Illness Chief Complaint: Chest Pain Narrative: Patient is a 23-year-old female who presents with chest pain. I recently saw the patient in the emergency department. She had been recently diagnosed with hypertension and presented with severely elevated blood pressure as well as chest pain and abnormal EKG. She was admitted for further evaluation she underwent work-up including a stress test and echocardiogram. These were unremarkable. She was switched from amlodipine to atenolol and her blood pressure has been better controlled. She has returned once since that time with chest pain had a negative work-up. Her symptoms have been attributed to anxiety as well as likely component of reflux. She had chest pain again last night which felt more like heartburn and improved with Zantac. She went to the wellness center as it recurred and she was given an antacid again with improvement of symptoms. However about an hour ago she developed left upper chest pain which is pressure-like with radiation to the shoulder so became more concerned and presented here for evaluation. She denies any shortness of breath nausea vomiting lightheadedness dizziness. Past Medical History - Allergies and Home Meds Allergies/Adverse Reactions: Allergies No Known Allergies Allergy (Verified 03/29/19 02:35) Primary Care Physician: Care Physician,No Primary [Primary Care Provider] - Past Medical History: - - Hypertension Surgical History: no surgical history Smoking Status: Never smoker - Family History Maternal Family History: Reports: Hypertension Paternal Family History: Reports: Hypertension Review of Systems All systems negative except as indicated General: Denies: Fever Cardiovascular: Reports: Chest pain Respiratory: Denies: Dyspnea Gastrointestinal: Denies: Nausea, Vomiting Physical Exam Vital Signs/Narrative: Vital Signs Temp Pulse Resp BP Pulse Ox 03/29/19 02:35 98.1 F 60 16 138/106 H 98 General: Well nourished Head: Normocephalic Eyes: EOMI ENT: Moist mucous membranes Neck: Supple Cardiovascular: Regular rate, Regular rhythm, - - Symmetric, easily palpable, radial pulses Respiratory: No distress, CTA bilaterally Abdomen: Soft, Nontender Skin: Normal color Neurological: Alert Psychological: Normal affect Diagnostic/Tx/Re-eval - Medical Decision Making EKG shows sinus bradycardia rate of 55, no acute ischemic changes. Laboratory studies are unremarkable with a negative troponin. Patient has had 2 recent chest x-ray so I did not repeat. Given her recent extensive work-up I do not b elieve this due to serious or life-threatening pathology. She was reassured. She was advised to follow-up as an outpatient. She was discharged. ED Disposition - Plan for ED Patient: Disposition: Home or Assisted Living Diagnosis: Chest pain Instructions: CHEST PAIN, Uncertain Cause Referrals: Care Physician,No Primary [Primary Care Provider] -
[2019-03-29 03:11] LABS: Absolute Lymphocyte Count 3.52 X10^3/uL (0.83-4.51); Absolute Neutrophil Count 5.6 X10^3/uL (2.0-7.7); Basophil# 0.02 X10^3/uL; Basophil% 0.2 % (0-1); Eosinophil# 0.15 X10^3/uL; Eosinophils% 1.5 % (0-5); Hematocrit 36.6 % (37-47); Lymphocyte # 3.52 X10^3/ul (4.0); Lymphocyte % 35.1 % (19-41); Mean Corp Hgb Conc 32.8 g/dL (32-36); Mean Corpuscular Hgb 29.9 pg (27.0-32.0); Mean Corpuscular Volume 91.3 fL (81-99); Mean Platelet Vol. 11.1 fl (6.2-12.0); Monocyte# 0.67 X10^3/uL; Monocyte% 6.7 % (0-10); NRBC Flagged by Analyzer 0 % (0-5); Neutrophil # 5.64 X10^3/uL (2.7-7.7); Neutrophil % 56.2 % (47-70); Platelet Count 238 K/mm3 (150-450); RBC Distribution Width CV 12.7 % (11.6-14.6); RBC Distribution Width SD 41.9 fl (35.1-43.9); Red Blood Count 4.01 M/mm3 (4.2-5.4)
[2019-03-29 03:29] LABS: Anion Gap 9 (5-15); BUN 13 mg/dL (7-18); BUN/Creat Ratio 22.4 RATIO (10-20); Calcium,Total 8.8 mg/dL (8.5-10.1); Chloride 107 mmol/L (98-107); Creatinine, Serum 0.58 mg/dL (0.55-1.02); EST Glomerular Filtration Rate 138 mL/min (>60); Est Glom Filt Rate - Afr Amer 168 mL/min (>60); Estimated Creatinine Clearance 126.92 ml/min; Glucose 82 mg/dL (74-106); Potassium 3.8 mmol/L (3.5-5.1); Sodium Level 140 mmol/L (136-145)
[2019-03-29 03:38] VITALS: BP 125/91; PULSE 57; RESP 15; O2SAT 98
== END 2019-03-29 03:45 | disposition home or self-care (01) ==
PROVIDERS: Emergency Provider Emergency Medicine
DX: R07.89 Other chest pain (principal); I10 Essential (primary) hypertension; Z79.899 Other long term (current) drug therapy
CPT/HCPCS: 80048; 84484; 85025; 93005; 99283; A4216